=== PATIENT | male | born 1980 | race African-American/Black ===

== ENCOUNTER 2022-02-01 17:48 | Emergency (ER) | payer MEDICAID ==
[~2022-02-01] VITALS: Ht 182.9 cm; Wt 128.0 kg
[2022-02-01 17:52] VITALS: BP 136/96
== END 2022-02-01 19:29 | disposition left against medical advice (07) ==
LOC: ER 17:48
DX: Z53.21 Procedure and treatment not carried out due to patient leaving prior to being seen by health care provider (principal)
CPT/HCPCS: 99281

== ENCOUNTER 2024-01-13 22:14 | Emergency (ER) | payer MEDICAID, OTHER ==
[~2024-01-13] VITALS: Ht 182.9 cm; Wt 132.3 kg
[2024-01-13 22:17] VITALS: BP 135/90; TEMP 97.9
[2024-01-13 23:46] VITALS: PULSE 102; RESP 18; O2SAT 96
[2024-01-13] MEDS: ALBUTEROL (0.083%) 2.5MG/3ML NEB HHN STA (23:46)
[2024-01-13] MEDS: IPRATROPIUM BROMIDE (0.02%) 0.5MG/2.5ML NEB HHN STA (23:47)
[2024-01-13] MEDS: METHYLPREDNISOLONE SOD SUCC 125MG/2ML (ACT-O-VIAL) IV STA (23:53)
[2024-01-14] MEDS ORDERED: P50 MT (01:32)
[2024-01-14] MEDS ORDERED: ALBU6.7H15 INH (01:33)
== END 2024-01-14 02:12 | disposition home or self-care (01) ==
LOC: ER 22:14
DX: J45.901 Unspecified asthma with (acute) exacerbation (principal); F12.10 Cannabis abuse, uncomplicated; E11.9 Type 2 diabetes mellitus without complications; Z88.8 Allergy status to other drugs, medicaments and biological substances
CPT/HCPCS: 71045; 94644; 96374; 99285; J2919; Z7610 ×2; 94640